=== PATIENT | female | born 1955 | race Caucasian/White ===

== ENCOUNTER 2021-05-05 21:15 | Inpatient (IN) | payer OTHER ==
--- OUTSIDE RECORDS SUMMARY | 2021-05-05 21:17 | XMS REPORT | Continuity of Care Document ---
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 02-18 ity of 00:00: [place] 00 [facility] [place] Allergies, Adverse Reactions, Alerts Allergy Allergy Status Severity Reaction(s) Onset Inactive Treating Comm ents Source Name Type Date Date Clinician Codeine Propensi Active Unknown - Severe Univ ers Sulfate ty to See comments 02-18 hypotensi ity of adverse 00:00: on after [place] reaction 00 taking Medical s to [place] drug Social History Social Habit Start Date Stop Date Quantity Comments Source Exposure to Not sure [facility] SARS-CoV-2 (event) Medica l Branch Tobacco use and 2021-02-18 2021-02-18 Never used [facility] exposure 00:00:00 00:00:00 Medical [place] Sex Ass[birth year] [facility] [place] 00:00:00 00:00:00 Medical Branch Smoking Status Start Date Stop Date Source Never smoker [facility] Medications Ordered Filled Start Stop Current Ordering Indication Dosage Frequency Signature Comments Components Source Medication Medication Date Date Medication? Clinician (SIG) Name Name thyroid 2020-05 Yes 60mg Take 60 mg Univ ers (ARMOUR 0-26 by mouth ity of THYROID) 60 14:16: every [place] mg tablet 23 morning. Medica l Branch SERTraline 2020-05 Yes 50mg Take 50 mg U nivers 50 mg 0-26 by mouth ity of tablet 14:16: at [place] 23 bedtime. Medical Branch acetaminoph 2020-05 Yes [id number] 1072mg Take 33.5 Univers en 160 mg/5 0-10 mL by ity of mL liquid 00:00: mouth [place] 00 every 6 Medical (six) Branch hours. ibuprofen 2020-05 Yes [id number] 600mg Take 6 U nivers 100 mg 0-10 tablets by ity of chewable 00:00: mouth [place] tablet 00 every 8 Medical (eight) Branch hours. Vital Signs Vital Name Observation Time Observation Value Comments Source Systolic blood 2021-03-24 19:16:00 141 mm[Hg] Univer sity of pressure [facility] Diastolic blood 2021-03-24 19:16:00 86 mm[Hg] Unive rsity of [facility] Heart rate 2021-03-24 19:16:00 77 /min [facility] Body temperature 2021-03-24 19:16:00 37.06 [facility] ersity [facility] Body height 2021-03-24 19:16:00 157.5 cm [facility] Body weight 2021-03-24 19:16:00 67.586 kg [facility] BMI 2021-03-24 19:16:00 27.25 kg/m2 [facility] Oxygen saturation in 2021-03-24 19:16:00 98 /min [facility] Arterial blood by [facility] Pulse oximetry Branch Procedures This patient has no known procedures. Encounters Start End Encounter Admission Attending Care Care Encounter Source Date/Time Date/Time Type Type Clinicians Facility Department ID 2021-03-24 2021-03-24 Office Roselia MNAMRIK [id number] 14:07:36 15:48:33 Visit [facility] [id number] [facility] [id number] [facility] AT [id number] Hi christina NUNEZ [address] [place] [address] 2020-09-22 2020-09-22 Outpatient [facility] [id number] [facility] 2020-08-05 2020-08-05 Outpatient [facility] [id number] [facility] Results This patient has no known results.
[2021-05-05] MEDS ORDERED: ONDANSETRON 4 MG/2 ML VIAL ONE ×2 (21:47→21:50)
[2021-05-05] MEDS ORDERED: FENTANYL CITR 100 MCG/2 ML ONE ×3 (21:47→22:52)
--- NOTE | 2021-05-05 22:07 | RAD REPORT ---
EXAM DESCRIPTION: RAD - Knee Left 3 View - 05/05/2021 9:56 pm CLINICAL HISTORY: Left knee pain status post injury FINDINGS: A depressed lateral tibial plateau fracture which extends medially to involve the tibial s pine. Hemarthrosis No dislocation
--- NOTE | 2021-05-05 23:53 | ER ---
Nurse's Notes [facility] Name: Keke Garcia Age: 65 yrs Sex: Female : 1955 Arrival Date: 05/05/2021 Time: 21:18 Bed 7 Private MD: Diagnosis: Tibial [place] Fracture;Hemarthrosis, left knee;Intractable pain;Vasovagal syncope Presentation: 05/05 21:24 Chief complaint: EMS states: they were toned out for report of pt having fallen while bb playing with her dog injuring her left knee. Coronavirus screen: At this time, the client does not indicate any symptoms associated with coronavirus-19. Ebola Screen: No symptoms or risks identified at this time. Initial Sepsis Screen: Does the patient meet any 2 criteria? No. Patient's initial sepsis screen is negative. Does the patient have a suspected source of infection? No. Patient's initial sepsis screen is negative. Risk Assessment: Do you want to hurt yourself or someone else? Patient reports no desire to harm self or others. Onset of symptoms was May 05, 2021. 21:24 Method Of Arrival: EMS: [facility] bb 21:24 Acuity: ANN 3 bb Triage Assessment: 21:28 General: Appears in no apparent distress. uncomfortable, Behavior is calm, cooperative. bb Pain: Complains of pain in left leg Pain currently is 6 out of 10 on a pain scale. Neuro: Level of Consciousness is awake, alert, obeys commands, Oriented to person, place, time, situation. Cardiovascular: Capillary refill < 3 seconds Patient's skin is warm and dry. Respiratory: Airway is patent Respiratory effort is even, unlabored, Respiratory pattern is regular. GI: No signs and/or symptoms were reported involving the gastrointestinal system. Derm: Skin is pink, warm \\T\\ dry. Musculoskeletal: Circulation, motion, and sensation intact. Musculoskeletal: Reports pain in left knee. Historical: - Allergies: 21:28 Codeine; bb - Home Meds: 21:28 [place] Thyroid Oral [Active]; sertraline oral [Active]; bb - PMHx: 21:28 Hypothyroidism; Depressive disorder; bb - PSHx: 21:28 hernia; bb - Immunization history:: Adult Immunizations up to date, Client reports having NOT received the Covid vaccine. - Social history:: Smoking status: Patient denies any tobacco usage or history of. Screenin:31 Abuse screen: Denies threats or abuse. Nutritional screening: No deficits noted. bb Tuberculosis screening: No symptoms or risk factors identified. Fall Risk None identified. Assessment: 21:32 Reassessment: No changes from previously documented assessment. Patient is alert, bb oriented x 3, equal unlabored respirations, skin warm/dry/pink. see triage assessment. 22:06 Reassessment: Patient and/or family updated on plan of care and expected duration. Pain tw5 level reassessed. Patient is alert, oriented x 3, equal unlabored respirations, skin warm/dry/pink. Patient states feeling better. Pain: Pain currently is 5 out of 10 on a pain scale. Noted to be guarding, moaning, resistant to movement. 22:44 General: Appears uncomfortable, Behavior is calm, cooperative, quiet. General: Reports tw5 " The pain is real real bad". Pain: Pain currently is 10 out of 10 on a pain scale. 23:23 General: Reports. Pain: Pain currently is 5 out of 10 on a pain scale. Respiratory: tw5 Airway is patent Trachea midline Respiratory effort is even, Respiratory pattern is regular. 12 00:24 General: Reports "I feel like I am going to faint. tw5 01:04 General: Reports " I just want to go home" Patient requested more pain medication. It tw5 was discussed with the patient that her blood pressure was too low for more medication at this time. Provider notifed. 08:00 Reassessment: Patient appears in no apparent distress at this time. Patient and/or tw2 family updated on plan of care and expected duration. Pain level reassessed. Patient is alert, oriented x 3, equal unlabored respirations, skin warm/dry/pink. Vital Signs: 05/05 21:24 BP 158 / 85; Pulse 74; Resp 16 S; Pulse Ox 98% on R/A; Weight 68.04 kg (R); Height 5 bb ft. 1 in. (154.94 cm) (R); Pain 6/10; 21:40 BP 151 / 80; Pulse 73; Resp 14; Pulse Ox 99% on R/A; Pain 7/10; tw5 22:06 BP 153 / 87; Pulse 69; Resp 14; Pulse Ox 97% on R/A; Pain 5/10; tw5 22:10 Pain 5/10; tw5 22:44 BP 136 / 73; Pulse 69; Resp 14; Pulse Ox 96% on R/A; Pain 10/10; tw5 23:23 BP 123 / 78; Pulse 70; Resp 14; Pulse Ox 98% on R/A; Pain 5/10; tw5 23:23 Pain 5/10; tw5 08 00:07 BP 121 / 65; Pulse 80; Resp 14; Pulse Ox 99% on R/A; Pain 5/10; tw5 00:14 Pain 5/10; tw5 00:24 BP 71 / 43; Pulse 57; Resp 18; Pulse Ox 97% on R/A; tw5 01:04 BP 132 / 80; Pulse 80; Resp 14; Pulse Ox 100% on R/A; tw5 02:13 Pain 5/10; tw5 02:16 BP 126 / 59; Pulse 78; Resp 18; Pulse Ox 100% ; Pain 5/10; tw5 07:00 BP 110 / 68; Pulse 95; Resp 18; Pulse Ox 95% on R/A; tw2 08:00 BP 109 / 67; Pulse 88; Resp 17; Pulse Ox 96% on R/A; tw2 12 21:24 Body Mass Index 28.34 (68.04 kg, 154.94 cm) bb ED Course: 05/05 21:18 Patient arrived in ED. mw2 21:23 Shaina Mejias is Primary Nurse. tw5 21:27 Triage completed. bb 21:28 Arm band placed on Patient placed in an exam room, on a stretcher, on pulse oximetry. bb 21:32 Patient has correct armband on for positive identification. Call light in reach. Side bb rails up X 1. Pulse ox on. NIBP on. 21:33 Christian Rocha PA is PHCP. jr8 21:33 Jefferson Monge MD is Attending Physician. jr8 21:40 Door closed. Warm blanket given. Pillow given. tw5 21:40 Maintain EMS IV. Dressing intact. Good blood return noted. Site clean \\T\\ dry. Gauge \\T\\ tw 5 site: 20 g RAC. knee elevated. 21:56 XRAY Knee LEFT 3 view In Process Unspecified. EDMS 23:05 Knee Left Wo Con In Process Unspecified. EDMS 23:23 Assisted with bedpan. tw5 23:49 Juan Tsang MD is Referral Physician. jr8 05/06 00:07 No provider procedures requiring assistance completed. IV discontinued, intact, tw5 bleeding controlled, No redness/swelling at site. Pressure dressing applied. Knee immobilizer applied on left knee. 00:32 Inserted saline lock: 20 gauge in right antecubital area, using aseptic technique. tw5 01:15 Fredrick Carvajal MD is Hospitalizing Provider. jr8 02:13 COVID-19 SARS RT PCR (Document "Date of Onset" if Symptomatic) Sent. tw5 02:15 Assisted with bedpan. tw5 Administered Medications: 05/05 21:57 Drug: fentaNYL (PF) 50 mcg Route: IVP; Site: right antecubital; tw5 22:10 Follow up: Pain 5/10 Adult; Response: No adverse reaction; RASS: Alert and Calm (0) tw5 21:57 Drug: Zofran (Ondansetron) 4 mg Route: IVP; Site: right antecubital; tw5 22:10 Follow up: Response: No adverse reaction tw5 22:55 Drug: fentaNYL (PF) 50 mcg Route: IVP; Site: right antecubital; tw5 23:23 Follow up: Pain 5/10 Adult; Response: No adverse reaction; Pain is decreased; RASS: tw5 Alert and Calm (0) 23:23 Drug: fentaNYL (PF) 50 mcg Route: IVP; Site: right antecubital; tw5 12 00:14 Follow up: Pain 5/10 Adult; Response: No adverse reaction; Pain is unchanged, physician tw5 notified; RASS: Alert and Calm (0) 00:32 Drug: NS 0.9% 1000 ml Route: IV; Rate: 1 bolus; Site: right antecubital; tw5 01:37 Follow up: Response: No adverse reaction; IV Status: Completed infusion tw5 01:37 Drug: fentaNYL (PF) 25 mcg Route: IVP; Site: right antecubital; tw5 02:13 Follow up: Pain 5/10 Adult; Response: No adverse reaction; Pain is decreased; RASS: tw5 Alert and Calm (0) 02:15 Drug: fentaNYL (PF) 25 mcg Route: IVP; Site: right antecubital; tw5 Outcome: 05/05 23:53 Discharge ordered by . jr8 05/06 00:08 Discharged to home via wheelchair. tw5 Condition: good Discharge instructions given to patient, family, Instructed on discharge instructions, follow up and referral plans. medication usage, Demonstrated understanding of instructions, Prescriptions given X 2. 01:17 Decision to Hospitalize by Provider. jr8 08:28 Patient left the ED. tw2 Signatures: Dispatcher [employer] EDKylah Robison RN RN Christian Kaur PA PA jr8 Yumiko Andre RN RN tw2 Padmini Madison2 Shaina Mejias tw5
--- NOTE | 2021-05-05 23:53 | EDPHYS ---
Physician Documentation [facility] Name: Keke Garcia Age: 65 yrs Sex: Female : 1955 Arrival Date: 05/05/2021 Time: 21:18 Bed 7 Private MD: ED Physician Jefferson Monge HPI: 05/05 21:40 This 65 yrs old Female presents to ER via EMS with complaints of Knee pain. jr8 21:40 This is a 65-year-old female patient that arrived via EMS after sustaining a fall while jr8 playing with her dog. Patient stated that she landed on the ground towards her right side but developed a large pain in her left knee. Has not been able to move her knee since the incident. Denies hitting her head or neck. Denies loss of consciousness. Denies any other pain or trauma at this time.. Historical: - Allergies: 21:28 Codeine; bb - Home Meds: 21:28 [place] Thyroid Oral [Active]; sertraline oral [Active]; bb - PMHx: 21:28 Hypothyroidism; Depressive disorder; bb - PSHx: 21:28 hernia; bb - Immunization history:: Adult Immunizations up to date, Client reports having NOT received the Covid vaccine. - Social history:: Smoking status: Patient denies any tobacco usage or history of. ROS: 21:40 Eyes: Negative for injury, pain, redness, and discharge, ENT: Negative for injury, jr8 pain, and discharge, Neck: Negative for injury, pain, and swelling, Cardiovascular: Negative for chest pain, palpitations, and edema, Respiratory: Negative for shortness of breath, cough, wheezing, and pleuritic chest pain, Abdomen/GI: Negative for abdominal pain, nausea, vomiting, diarrhea, and constipation, Back: Negative for injury and pain, Skin: Negative for injury, rash, and discoloration, Neuro: Negative for headache, weakness, numbness, tingling, and seizure. 21:40 MS/extremity: Positive for decreased range of motion, pain, swelling, tenderness, of the Left knee. Exam: 21:40 Constitutional: This is a well developed, well nourished patient who is awake, alert, jr8 and in no acute distress. Head/Face: Normocephalic, atraumatic. Neck: Trachea midline, no thyromegaly or masses palpated, and no cervical lymphadenopathy. Supple, full range of motion without nuchal rigidity, or vertebral point tenderness. No Meningismus. Chest/axilla: Normal chest wall appearance and motion. Nontender with no deformity. No lesions are appreciated. Cardiovascular: Regular rate and rhythm with a normal S1 and S2. No gallops, murmurs, or rubs. Normal PMI, no JVD. No pulse deficits. Respiratory: Lungs have equal breath sounds bilaterally, clear to auscultation and percussion. No rales, rhonchi or wheezes noted. No increased work of breathing, no retractions or nasal flaring. Abdomen/GI: Soft, non-tender, with normal bowel sounds. No distension or tympany. No guarding or rebound. No evidence of tenderness throughout. Back: No spinal tenderness. No costovertebral tenderness. Full range of motion. Skin: Warm, dry with normal turgor. Normal color with no rashes, no lesions, and no evidence of cellulitis. Neuro: Awake and alert, GCS 15, oriented to person, place, time, and situation. Motor strength 5/5 in all extremities. Sensory grossly intact. 21:40 Musculoskeletal/extremity: Extremities: grossly normal except: noted in the left leg: Patient has decreased range of motion secondary to pain and effusion of the left knee. Moderate suprapatellar effusion noted. Moderate tenderness to palpation of the suprapatellar region noted. Unable to fully extend the leg secondary to pain to further evaluate for ligamentous injury. Remainder of extremity unremarkable. 2+ pulses dorsal patellas and posterior tibial with normal sensation throughout the leg. Remainder of other extremities unremarkable.. Vital Signs: 21:24 BP 158 / 85; Pulse 74; Resp 16 S; Pulse Ox 98% on R/A; Weight 68.04 kg (R); Height 5 bb ft. 1 in. (154.94 cm) (R); Pain 6/10; 21:40 BP 151 / 80; Pulse 73; Resp 14; Pulse Ox 99% on R/A; Pain 7/10; tw5 22:06 BP 153 / 87; Pulse 69; Resp 14; Pulse Ox 97% on R/A; Pain 5/10; tw5 22:10 Pain 5/10; tw5 22:44 BP 136 / 73; Pulse 69; Resp 14; Pulse Ox 96% on R/A; Pain 10/10; tw5 23:23 BP 123 / 78; Pulse 70; Resp 14; Pulse Ox 98% on R/A; Pain 5/10; tw5 23:23 Pain 5/10; tw5 08 00:07 BP 121 / 65; Pulse 80; Resp 14; Pulse Ox 99% on R/A; Pain 5/10; tw5 00:14 Pain 5/10; tw5 00:24 BP 71 / 43; Pulse 57; Resp 18; Pulse Ox 97% on R/A; tw5 01:04 BP 132 / 80; Pulse 80; Resp 14; Pulse Ox 100% on R/A; tw5 02:13 Pain 5/10; tw5 02:16 BP 126 / 59; Pulse 78; Resp 18; Pulse Ox 100% ; Pain 5/10; tw5 07:00 BP 110 / 68; Pulse 95; Resp 18; Pulse Ox 95% on R/A; tw2 08:00 BP 109 / 67; Pulse 88; Resp 17; Pulse Ox 96% on R/A; tw2 12 21:24 Body Mass Index 28.34 (68.04 kg, 154.94 cm) bb Procedures: 05/05 23:48 Splinting: Splint applied to right leg using knee immobilizer, applied by nurse. jr8 Examined by me, post splint application: neurovascular intact, 2+ distal pulses palpable, brisk capillary refill noted, Patient tolerated well. Crutch training provided to patient and/or family. Return demonstration given. MDM: 21:33 Patient medically screened. jr8 23:49 Data reviewed: vital signs, nurses notes, radiologic studies, CT scan, plain films. jr8 Data interpreted: Pulse oximetry: on room air is 98 %. Interpretation: normal. Counseling: I had a detailed discussion with the patient and/or guardian regarding: the historical points, exam findings, and any diagnostic results supporting the discharge/admit diagnosis, radiology results, the need for outpatient follow up, a orthopedic surgeon, to return to the emergency department if symptoms worsen or persist or if there are any questions or concerns that arise at home. ED course: Discussed case with Dr. Tsang. Recommended CT and to put her in a knee immobilizer and will see her this week to schedule surgery.. 05/06 00:55 ED course: Patient before discharge had vasovagal episode causing her blood pressure jr8 and heart rate to drop. Patient has a history of this multiple times in the past. Had to restart her IV and give her fluid bolus. Waiting to see how she does before we discharge her home.. 01:11 ED course: Patient continues to have moderate amount of pain. Every time patient's pain jr8 increases blood pressure drops. Again this is a noted past medical problem but is unsafe to go home at this time because of this. Will admit to medicine. Consult to Dr. Tsang.. 05/06 02:01 Order name: COVID-19 SARS RT PCR (Document "Date of Onset" if Symptomatic); Complete bb Time: 03:20 12 04:34 Order name: CBC with Automated Diff EDMS 05/05 21:40 Order name: XRAY Knee LEFT 3 view; Complete Time: 22:21 jr8 05/05 22:30 Order name: Knee Left Wo Con EDMS 05/06 04:53 Order name: T4 Free EDMS 05/06 04:53 Order name: Thyroid Stimulating Hormone EDMS 05/05 22:27 Order name: Knee Immobilizer; Complete Time: 00:08 jr8 Administered Medications: 05/05 21:57 Drug: fentaNYL (PF) 50 mcg Route: IVP; Site: right antecubital; tw5 22:10 Follow up: Pain 5/10 Adult; Response: No adverse reaction; RASS: Alert and Calm (0) tw5 21:57 Drug: Zofran (Ondansetron) 4 mg Route: IVP; Site: right antecubital; tw5 22:10 Follow up: Response: No adverse reaction tw5 22:55 Drug: fentaNYL (PF) 50 mcg Route: IVP; Site: right antecubital; tw5 23:23 Follow up: Pain 5/10 Adult; Response: No adverse reaction; Pain is decreased; RASS: tw5 Alert and Calm (0) 23:23 Drug: fentaNYL (PF) 50 mcg Route: IVP; Site: right antecubital; tw5 05/06 00:14 Follow up: Pain 5/10 Adult; Response: No adverse reaction; Pain is unchanged, physician tw5 notified; RASS: Alert and Calm (0) 00:32 Drug: NS 0.9% 1000 ml Route: IV; Rate: 1 bolus; Site: right antecubital; tw5 01:37 Follow up: Response: No adverse reaction; IV Status: Completed infusion tw5 01:37 Drug: fentaNYL (PF) 25 mcg Route: IVP; Site: right antecubital; tw5 02:13 Follow up: Pain 5/10 Adult; Response: No adverse reaction; Pain is decreased; RASS: tw5 Alert and Calm (0) 02:15 Drug: fentaNYL (PF) 25 mcg Route: IVP; Site: right antecubital; tw5 Disposition Summary: 05/06/21 01:17 Hospitalization Ordered Hospitalization Status: Inpatient Admission jr8 Provider: Fredrick Carvajal Condition: Stable(05/06/21 01:17) jr8 Problem: new(05/06/21 01:17) jr8 Symptoms: are unchanged(05/06/21 01:17) jr8 Bed/Room Type: Standard [facility] Location: Telemetry/MedSurg (Inpatient)(05/06/21 07:38) Room Assignment: [facility](05/06/21 07:38) bd Diagnosis - Tibial [place] Fracture jr8 - Hemarthrosis, left knee(05/06/21 01:17) jr8 - Intractable pain jr8 - Vasovagal syncope jr8 Forms: - Medication Reconciliation Form jr8 - SBAR form jr8 Signatures: Dispatcher [employer] EDKymberly Schumacher Martha RN Kylah Marvin RN RN bb Roszak, Josh, PA PA jr8 Shaina Mejias Corrections: (The following items were deleted from the chart) 00:23 1207 23:53 Home jr8 tw5 05/06 00:23 12 23:53 new jr8 tw5 05/06 00:23 12 23:53 have improved jr8 tw5 05/06 00:23 12 23:53 Stable jr8 tw5 05/06 00:23 12 23:53 Tibial [place] fracture knee jr8 tw5 05/06 00:23 12 23:53 Hemarthrosis, left knee jr8 tw5 05/06 02:03 01:17 Telemetry/MedSurg (Inpatient) jr8 mw 02:03 01:17 jr8 mw 07:38 02:03 BR ER HOLD mw bd 07:38 02:03 ERHOLD- mw bd
[2021-05-06] MEDS ORDERED: NA CHLORIDE 0.9% 1,000 ML ONE ×2 (00:26→03:25)
[2021-05-06] MEDS ORDERED: FENTANYL CITR 100 MCG/2 ML ONE (01:12)
--- NOTE | 2021-05-06 02:26 | P.HP ---
Certification for Inpatient Patient admitted to: Inpatient With expected LOS: >2 Midnights Patient will require the following post-hospital care: None Practitioner: I am a practitioner with admitting privileges, knowledge of patient current condition, hospital course, and medical plan of care. Services: Services provided to patient in accordance with Admission requirements found in Title 42 Section 412.3 of the Code of Federal Regulations <Charlie Marion - Last Filed: 05/06/21 02:18> Patient History Date of Service: 05/06/21 Primary Care Provider: Dr. Poe Reason for admission: Tibial plateau fracture History of Present Illness: 65-year-old female with history of hypothyroidism and depression presents emergency department after mechanical fall. Patient complaining of left knee pain upon arrival to the emergency department x-ray demonstrated tibial plateau fracture, patient had follow-up CT scan without contrast demonstrating fracture along the lateral tibial plateau/articular surface extending along the posterior aspect intercondylar eminence with left suprapatellar hemarthrosis. Plan was for discharge with outpatient follow-up with orthopedic in 1 week but patient is with intractable pain after multiple doses of IV fentanyl in addition to near syncopal episode related to pain. ED provider discussed case with orthopedics who recommends admission to the hospitalist service with consult for orthopedics. - Past Medical/Surgical History -: Depression -: Hypothyroidism -: Hernia repair -: riana fundoplication Psychosocial/ Personal History: Patient is retired, lives at home with her - Family History Father -: Stroke, Cancer Mother -: Stroke, Cancer - Social History Smoking Status: Never smoker Alcohol use: No CD- Drugs: No Caffeine use: No Place of Residence: Home <Charlie Marion - Last Filed: 05/06/21 02:18> Date of Service: 05/06/21 <Fredrick Carvajal - Last Filed: 05/06/21 17:20> Allergies codeine Allergy (Verified 05/05/21 22:29) Itching/Hives/Rash Review of Systems 10-point ROS is otherwise unremarkable Musculoskeletal: Leg Pain, As per HPI <Charlie Marion - Last Filed: 05/06/21 02:18> Physical Examination - Physical Exam General: Alert, In no apparent distress, Oriented x3 HEENT: Atraumatic, PERRLA, Mucous membr. moist/pink, EOMI, Sclerae nonicteric Neck: Supple, 2+ carotid pulse no bruit, No LAD, Without JVD or thyroid abnormality Respiratory: Clear to auscultation bilaterally, Normal air movement Cardiovascular: Regular rate/rhythm, Normal S1 S2 Capillary refill: Brisk Gastrointestinal: Normal bowel sounds, No tenderness Musculoskeletal: Swelling, Tenderness Integumentary: No rashes Neurological: Normal speech, Normal strength at 5/5 x4 extr, Normal tone, Normal affect <Charlie Marion - Last Filed: 05/06/21 02:18> Assessment and Plan - Plan Assessment: Left lateral tibial plateau fracture with left suprapatellar hemarthrosis, intractable pain Vasovagal syncope related to above Hypothyroidism Depression Plan: Left lateral tibial plateau fracture with left suprapatellar hemarthrosis, intractable pain: N.p.o., as needed pain medication, leg currently supported in stretcher by pillow and position of comfort. No signs of compartment syndrome, compartments are soft pulses intact distally no alterations in sensation at this time. Will hold off on DVT ppx until plan from ortho is made. Ortho consult in place. Vasovagal syncope related to above: Pain control, IVF, pt reports fainting easily with multiple episodes in the past. Hypothyroidism: Thyroid panel with morning labs, continue home meds. Depression: continue home meds. DVT PPX: Hold off at this time until further plan from ortho in place Code status:Full code Discharge Plan: Home Plan to discharge in: 48 Hours - Advance Directives Does patient have a Living Will: No Does patient have a Durable POA for Healthcare: No - Code Status/Comfort Care Code Status Assessed: Yes (full code) Critical Care: No Time Spent Managing Pts Care (In Minutes): 55 <Charlie Marion - Last Filed: 05/06/21 02:18> - Plan Patient seen and examined on rounds this morning. She reported some temporary improvement of her pain with morphine. Blood pressures have been a little soft No new complaints, no new development of numbness/tingling in her distal foot Reports history of very sensitive to pain, vasovagal responses. Also sensitive to pain medication. History of severe hypotension with Tylenol 3 Discussed with orthopedic surgery today, no plan for surgery immediately Recommend pain control, eventual discharge home and follow-up in office next week <Fredrick Carvajal - Last Filed: 05/06/21 17:20>
[2021-05-06] MEDS ORDERED: ONDANSETRON 4 MG/2 ML VIAL IV PRN (03:11)
[2021-05-06] MEDS: NA CHLORIDE 0.9% 1,000 ML IV SCH ×3 (03:11→23:38)
[2021-05-06 03:21] VITALS: BMI 28.3
[2021-05-06] MEDS ORDERED: MORPHINE 2 MG/ML SYR ONE ×2 (03:25→06:40)
[2021-05-06] MEDS: MORPHINE 2 MG/ML SYR IV PRN ×4 (03:27→21:03)
[2021-05-06 04:30] LABS: Absolute Lymphocytes (CBC) 0.9 K/uL (0.7-4.9); Basophils % 0.5 % (0-1.3); Hematocrit 33.1 % (36.0-45.0); Lymphocytes % 16.9 % (15.3-44.8); MPV 8.9 fL (7.6-11.3); RBC Red Blood Cell Count 4.14 M/uL (3.86-4.86)
[2021-05-06 04:53] LABS: Thyroid Stimulating Hormone 3.36 uIU/mL (0.360-3.740)
[2021-05-06] MEDS ORDERED: ACETAMINOPHEN 500 MG TAB PO PRN (07:54)
--- NOTE | 2021-05-06 08:23 | CON ---
Date of Consultation: 05/06/2021 History Of Present Illness: This is my first time seeing this patient to my knowledge. She is a 65- year-old female who unfortunately was fell while interacting with her dog, sustaining injury to her l eft lower extremity. She was seen and examined in the Emergency Department where she was ruled out f or other injuries, but x-rays demonstrated a tibial plateau fracture and I am called to see her. A C T scan has been ordered and I have reviewed this as well as plain x-rays. Physical Examination: All of her long bones and joints are palpated with no pain or crepitation exception of her left knee. She is neurovascularly intact to her left lower extremity. She does have significant amount of ricardo n related to her left knee. There is no sign of an open injury. X-rays were reviewed, which reveale d a depressed lateral tibial plateau fracture. A CT scan has been performed, which demonstrates a fr acture line, which traverses the tibial spines, but does not appear to otherwise involve the medial c ortex, which appears to be more or less a pure depression of the lateral tibial plateau with signific ant depression based upon remaining cortical rim. She does have some valgus to her knees; however, t his is a significant change in space. Assessment And Plan: A 65-year-old female now with a left tibial plateau fracture. She is neurovasc ularly intact without sign of an open injury. Recommendation is for open reduction and internal fixa tion and bone grafting, possible meniscal repair. This has been discussed with the patient as well a s the family member. They state they understand things as presented. We will have her followup as a n outpatient as we will allow the soft tissue envelope to calm down prior to pursuing operative inter vention. This is definitely an emergent case. All of their questions have otherwise been invited and answered today. She will be n onweightbearing in a knee immobilizer. SE/MODL Voice ID: [id number] Report ID: [id number]
[2021-05-06 09:14] LABS: Urine Appearance CLEAR (Clear); Urine Bilirubin NEGATIVE (Negative); Urine Blood NEGATIVE (Negative); Urine Color YELLOW (Yellow); Urine Glucose NEGATIVE (Negative); Urine Protein NEGATIVE (Negative); Urine Urobilinogen 0.2 mg/dL (0.2-1.0); Urine pH 6.5 (5.0-7.0)
[2021-05-06 09:29] LABS: Urine Microscopic Reflex NO UMIC
[2021-05-06] MEDS ORDERED: TRAMADOL HCL 50 MG TAB PO PRN (10:11)
[2021-05-06] MEDS ORDERED: PNEUMOCOCCAL VACCINE 0.5 ML IMVAC ONE (12:00)
[2021-05-06] MEDS ORDERED: INFLUENZA VACCINE (for 6+ mo) 0.5 ML DOSE IMVAC ONE (12:00)
--- NOTE | 2021-05-06 13:31 | RAD REPORT ---
EXAM DESCRIPTION: CT - Knee Left Wo Con - 05/06/2021 6:47 am CLINICAL HISTORY: 65 years, Female, fall injury COMPARISON: Previous plain film performed earlier. TECHNIQUE: Multiple transaxial tomograms of the left lower extremity-left knee were performed utiliz ing 2 mm slice thickness at 2 mm interval reconstruction without administration of IV contrast. 2-D m ultiplanar reformats in the sagittal and coronal plane were performed and reviewed. This exam was performed according to our departmental dose-optimization protocol, which includes auto mated exposure control, adjustment of the mA and/or kV according to patient size and/or use of iterat tino reconstruction technique. FINDINGS: As was described and visualized and previous x-ray there is a left suprapatellar hemarthro sis. There is a fracture along the lateral tibial plateau/articular surface extending along the poste rior aspect intercondylar eminence. There is a small subchondral cyst and minimal spur formation. The femoral condyles, patella and the rest of the tibia demonstrate to be within normal limits. The fibu lar head and proximal aspect of the fibular demonstrate to be unremarkable. Soft tissues demonstrate to be otherwise unremarkable. There is no evidence for significant hematoma. Vascular structures demo nstrate to be within normal limits. IMPRESSION: Fracture along the lateral tibial plateau/articular surface extending along the posterio r aspect intercondylar eminence. Left suprapatellar hemarthrosis. Electronically signed by: Deandre Fisher MD 05/05/2021 11:45 PM [facility] Due to temporary technical issues with the PACS/Fluency reporting system, reports are being signed by the in house radiologist without review as a courtesy to ensure prompt reporting. The interpreting r adiologist is fully responsible for the content of the report.
[2021-05-07] MEDS: MORPHINE 2 MG/ML SYR IV PRN ×2 (00:37→04:15)
[2021-05-07] MEDS: ACETAMINOPHEN 160 MG/5 ML UCUP PO PRN ×3 (02:50→17:50)
[2021-05-07 05:46] LABS: Absolute Lymphocytes (CBC) 0.7 K/uL (0.7-4.9); Basophils % 0.4 % (0-1.3); Lymphocytes % 20.9 % (15.3-44.8); MPV 8.9 fL (7.6-11.3); RBC Red Blood Cell Count 3.97 M/uL (3.86-4.86)
[2021-05-07 05:59] LABS: Albumin 2.7 g/dL (3.4-5.0); Bilirubin Total 0.3 mg/dL (0.2-1.0); Potassium 3.7 mmol/L (3.5-5.1); Protein, Total 6.7 g/dL (6.4-8.2)
[2021-05-07] MEDS ORDERED: TRAMADOL HCL 50 MG TAB PO PRN (07:43)
--- NOTE | 2021-05-07 07:44 | P.PN ---
Date of Service: 05/07/21
[2021-05-07] MEDS ORDERED: NA CHLORIDE 0.9% 1,000 ML IV SCH ×2 (08:00→15:43)
[2021-05-07] MEDS ORDERED: THYROID 30 MG TAB PO SCH (08:00)
[2021-05-07] MEDS ORDERED: SERTRALINE HCL 100 MG TAB PO SCH (09:00)
[2021-05-07 11:20] VITALS: O2SAT 79
[2021-05-07] MEDS ORDERED: MORPHINE 2 MG/ML SYR IV PRN (13:37)
--- NOTE | 2021-05-07 15:26 | P.DS ---
Admission Date: 05/06/21 Discharge Date: 05/07/21 Primary Care Provider: Dr. Poe Disposition: ROUTINE DISCHARGE Discharge Condition: FAIR Reason for Admission: Tibial plateau fracture Consultations: Orthopedic Surgery - Dr. Tsang Procedures: CT knee (05/06): IMPRESSION: Fracture along the lateral tibial plateau/articular surface extending along the posterior aspect intercondylar eminence. Left suprapatellar hemarthrosis. Problem list Left lateral tibial plateau fracture with left suprapatellar hemarthrosis, intractable pain Vasovagal syncope related to above Hypothyroidism Depression Brief History of Present Illness: 65-year-old female with history of hypothyroidism and depression presents emergency department after mechanical fall. Patient complaining of left knee pain upon arrival to the emergency department x-ray demonstrated tibial plateau fracture, patient had follow-up CT scan without contrast demonstrating fracture along the lateral tibial plateau/articular surface extending along the posterior aspect intercondylar eminence with left suprapatellar hemarthrosis. Plan was for discharge with outpatient follow-up with orthopedic in 1 week but patient is with intractable pain after multiple doses of IV fentanyl in addition to near syncopal episode related to pain. ED provider discussed case with orthopedics who recommends admission to the hospitalist service with consult for orthopedics. Hospital Course: Patient had some improvement in her pain control, no more vasovagal episodes. Reported doing better with Tylenol and tramadol. Patient and requested discharge home. They state they scheduled an appointment with orthopedic surgery on Tuesday. Patient's has picked up the tramadol prescription given to her by the ED when she was initially going to be discharged. Advised patient to continue tramadol as prescribed, can stagger with Tylenol. Orthopedic surgery recommended daily aspirin. Physical therapy was consulted to evaluate the patient, she reported that she did not want to wait for them. Patient was awaiting for final discharge paperwork when physical therapy was able to evaluate the patient. She was noted to have some dizziness/lightheadedness when sitting up. She was noted to have orthostatic vital signs. Her discharge was held, and she was ordered to receive a normal saline bolus. Prior to her receiving the fluid bolus, physical therapy reevaluated the patient and she had resolution of her orthostatic vitals, she was able to ambulate 40 feet, was stable, and did well. She again wanted to be discharged home. Suspect possible provocation of her orthostatic blood pressure was due to to tramadol. Patient did receive tramadol approximately 1 hour prior to her initial encounter with physical therapy. Patient was discharged home, advised to exercise extra caution after taking tramadol, or to try to take half a tablet. Vital Signs/Physical Exam: Temp Pulse Resp BP Pulse Ox 97.4 F 79 16 146/65 H 94 05/07/21 12:00 05/07/21 12:00 05/07/21 14:17 05/07/21 12:00 05/07/21 12:00 General: Alert, In no apparent distress (But uncomfortable if she tries to move her leg), Oriented x3 HEENT: PERRLA, Sclerae nonicteric Neck: Supple Respiratory: Clear to auscultation bilaterally, Normal air movement Cardiovascular: No edema, Regular rate/rhythm Gastrointestinal: Soft and benign, Non-distended, No tenderness Musculoskeletal: Tenderness (Left knee) Integumentary: No rashes, No significant lesion Neurological: Normal speech, Sensation intact, Normal affect Laboratory Data at Discharge: WBC 3.50 K/uL (4.3-10.9) L D 05/07/21 05:00 Hgb 10.4 g/dL (12.0-15.0) L 05/07/21 05:00 Hct 32.0 % (36.0-45.0) L 05/07/21 05:00 Plt Count 176 K/uL (152-406) 05/07/21 05:00 Sodium 143 mmol/L (136-145) 05/07/21 05:00 Potassium 3.7 mmol/L (3.5-5.1) 05/07/21 05:00 BUN 7 mg/dL (7-18) 05/07/21 05:00 Creatinine 0.70 mg/dL (0.55-1.3) 05/07/21 05:00 Glucose 113 mg/dL (74-106) H 05/07/21 05:00 Total Bilirubin 0.3 mg/dL (0.2-1.0) 05/07/21 05:00 AST 12 U/L (15-37) L 05/07/21 05:00 ALT 13 U/L (12-78) 05/07/21 05:00 Alkaline Phosphatase 63 U/L (45-117) 05/07/21 05:00 Home Medications: Sertraline [Zoloft*] 50 mg DAILY 05/06/21 Thyroid,Pork [[place] Thyroid] 60 mg pe DAILY 05/06/21 Physician Discharge Instructions: You have a tibial plateau fracture. You were treated with pain medication and seen by Orthopedic surgery. Recommended pain control, daily aspirin, and non-weightbearing of your left leg. Recommend keeping knee in immobilizer brace. You will need surgical correction which is typically done 1 week or so later. Follow up with Orthopedic surgery this coming week. Diet: Regular Activity: Non-weight bearing (L leg) Followup: Juan Tsang MD [ACTIVE - CAN ADMIT] - 1 Week (ortho- call to schedule an appointment ) Floyd Poe, [ACTIVE - CAN ADMIT] - Time spent managing pt's care (in minutes): 45
[2021-05-07] MEDS ORDERED: NA CHLORIDE 0.9% 500 ML IV ONE (17:00)
[2021-05-07 17:56] VITALS: BP 127/67; TEMP 98.1
== END 2021-05-07 19:00 | disposition home or self-care (01) | DRG 563 ==
LOC: ER 21:15 → ERHOLD 05-06 02:20 → 2ND 05-06 07:41
PROVIDERS: ADMIT Hospitalist; ATTEND Hospitalist
DX: S82.142A Displaced bicondylar fracture of left tibia, initial encounter for closed fracture (principal); M25.062 Hemarthrosis, left knee; F32.A Depression, unspecified; E03.9 Hypothyroidism, unspecified; R55 Syncope and collapse; W18.30XA Fall on same level, unspecified, initial encounter; Z88.5 Allergy status to narcotic agent; Z20.822 Contact with and (suspected) exposure to COVID-19
CPT/HCPCS: 36415; 73700; 80053; 81003; 84439; 84443; 85025; 96361; 96374; 96375; 97112; 97116; 97161; 97530; 99284; J2270; J2405; J3010; J7030; J7040; U0003